=== PATIENT | female | born 1945 | race Hispanic/Latino ===

== ENCOUNTER 2021-02-06 12:58 | Day surgery (SDC) | payer OTHER ==
[2021-02-04 13:45] LABS: Absolute Lymphocytes (CBC) 2.1 K/uL (0.7-4.9); Basophils % 0.8 % (0-1.3); Hematocrit 41.9 % (36.0-45.0); Lymphocytes % 17.4 % (15.3-44.8); MPV 8.9 fL (7.6-11.3)
[2021-02-04 13:56] LABS: Potassium 4.1 mmol/L (3.5-5.1)
[2021-02-04 14:03] LABS: Protime INR 0.93
--- NOTE | 2021-02-04 14:41 | RAD REPORT ---
EXAM DESCRIPTION: RAD - Chest Pa And Lat (2 Views) - 02/04/2021 2:34 pm CLINICAL HISTORY: pre-cath procedure, pending cardiac catheterization COMPARISON: Portable May 2009 TECHNIQUE: Frontal and lateral views of the chest were obtained. FINDINGS: The lungs are fibrotic, progressive from the comparison study. No peripheral mass, consoli dation or failure finding. No hilar mass or lymphadenopathy seen. Heart size is normal and central vasculature is within normal limits. No pleural effusion or pneumothorax seen. No acute bony findin g noted. No aortic abnormality. IMPRESSION: Interstitial fibrotic pattern throughout both lung [place] showing progression from 2009. No acute cardiopulmonary finding.
--- NOTE | 2021-02-05 16:46 | EKG ---
Test Date: 2021-02-04 Test Time: 12:03:00 Greenskeeper Supervisor: KWADWO MEASUREMENT RESULTS: Intervals: Rate: 84 ID: [id number] QRSD: 82 QT: 354 QTc: 418 [place]: P: 57 ID: [id number] QRS: 40 T: 58 INTERPRETIVE STATEMENTS: Normal sinus rhythm Possible Left atrial enlargement Nonspecific T wave abnormality Abnormal ECG Compared to ECG 02/26/2016 03:34:58 Sinus arrhythmia no longer present Possible ischemia no longer present T-wave abnormality still present Electronically Signed On 02-05-21 16:43:03 CDT by Marcos Moreno
[~2021-02-06 12:58] MED LIST: HEPA 1000U/500MLS 2,000 UNIT/1,000 ML BAG IV ONE; LIDOCAINE 1% 20 ML MDV ONE
[2021-02-06] MEDS ORDERED: NA CHLORIDE 0.9% 500 ML ONE (13:48)
[2021-02-06] MEDS ORDERED: MIDAZOLAM HCL 2 MG/2 ML INJ ONE (15:17)
[2021-02-06] MEDS ORDERED: HEPARIN 5000 UNIT/ML 1 ML VIAL ONE (15:17)
[2021-02-06] MEDS ORDERED: FENTANYL CITR 100 MCG/2 ML ONE (15:17)
[2021-02-06] MEDS ORDERED: VERAPAMIL HCL 10 MG/4 ML VIAL IV ONE (15:17)
[2021-02-06] MEDS ORDERED: ATROPINE SULF 1 MG/10 ML SYR IV ONE (15:18)
[2021-02-06] MEDS ORDERED: HYDRALAZINE HCL 20 MG/ML VIAL ONE (16:03)
[2021-02-06] MEDS ORDERED: METOPROLOL TARTRATE 5 MG/5 ML INJ IV ONE ×2 (16:10→16:16)
[2021-02-06] MEDS ORDERED: FLUMAZENIL 0.1 MG/ML (5 mL VIAL) IV ONE (16:16)
[2021-02-06] MEDS ORDERED: HEPA 1000U/500MLS 1,000 UNIT/500 ML BAG IV ONE (16:23)
[2021-02-06 17:09] VITALS: TEMP 97
--- NOTE | 2021-02-06 18:07 | RAD REPORT ---
EXAM DESCRIPTION: CT - Abdomen Pelvis Wo Contrast - 02/06/2021 5:51 pm CLINICAL HISTORY: post cath abdominal pain, syncopal episode COMPARISON: Abdomen Pelvis W Contrast dated 02/25/2016 TECHNIQUE: Axial [address] imaging of the abdomen and pelvis was performed without IV contrast. No IV contrast was given because of allergy, abnormal renal function, patient refusal or physician re quest. No oral contrast administered. All CT scans are performed using dose optimization technique as appropriate and may include automated exposure control or mA/KV adjustment according to patient size. FINDINGS: No suspicious findings in the lung bases. The liver, spleen and pancreas show no suspicious findings on non-contrast imaging. Gallbladder and b iliary tree are also without suspicious finding. No hydronephrosis or suspicious renal mass. No significant adrenal finding. Isodense renal masses an d pyelonephritis cannot be excluded in the absence of IV contrast. The urinary bladder is without sig nificant finding. Contrast is present in the ureters and bladder from earlier cardiac catheterization procedure. Uterus and ovaries show no suspicious findings. No dilated bowel loops or bowel wall thickening. Appendix is normal. No retroperitoneal hematoma or o ther post cardiac catheterization complication. Trace amount of stranding near the right common femor al artery access site noted very typical and not significant. No hernia, mass or bulky lymphadenopath y. No suspicious bony findings. IMPRESSION: No retroperitoneal hematoma or other post catheterization complication. No acute or emergent finding. Full assessment is limited is the absence of IV contrast.
[2021-02-06 19:17] VITALS: BP 131/77; O2SAT 96
--- NOTE | 2021-02-06 20:41 | OP ---
Date of Procedure: 02/06/2021 Surgeon: ANITRA PALMER Procedures Performed: 1.Selective coronary angiogram. 2.Left heart catheterization. 3.Right heart catheterization. Indication: Severe aortic valve stenosis. Access: Right femoral artery 7-Omani closed with StarClose, right femoral vein 7-Omani closed with manual pressure. Anesthesia: Total sedation time was 50 minutes. Complications: None. Bleeding: Less than 50 mL. Description Of Procedure: After risks, benefits, and alternatives were explained, the patient agreed to proceed and signed informed consent. The patient was brought into the cardiac catheterization la boratory, prepped and draped in usual sterile fashion. Then, we accessed the right femoral artery us ing micropuncture kit, ultrasound guidance and fluoroscopy. I placed 7-Omani Ullin sheath and th en accessed right femoral vein using ultrasound guidance and micropuncture kit and placed a 7-Omani Ullin sheath. Then, we took a 7-Omani balloon-tipped [place] catheter through the venous, accessed into the RA, obtained waveform with pressure and then RV, obtained waveform pressure, and then PA, ob tained waveform pressure, and then thermodilution and cardiac output, and then wedge waveform pressur e obtained. Then, I removed the [place] and then took a 4-Omani JL4 catheter into the aortic root thro ugh the femoral artery access, engaged left the main, took standard views and then took a 6-Omani JR 4 catheter into the aortic root, engaged the right coronary artery, took standard views. Then, using AL1 catheter and straight Glidewire across the aortic valve with difficulty and obtained a simultane ous aortic and LV pressure, the gradient was 47 mmHg. I then did a pullback and confirmed a gradient of 40 mmHg on the pullback and then removed the catheters and the sheaths were removed. Placed Star Close for closure on the femoral artery access with good hemostasis and minimal pressure on the venou s access with good hemostasis. The patient was given 5000 of heparin throughout the procedure. Findings: 1.Left main is large and normal. 2.LAD; large, normal. 3.Left circumflex is normal, nondominant. 4.RCA; large, dominant and is normal. 5.LVEDP was 5 mmHg. 6.Right heart catheterization numbers: RA pressure was 3; RV pressure was 40/2, mean of 4; PA press ure was 34/10, mean of 21; pulmonary wedge pressure was 11 mmHg. Gradient across the aortic valve wa s 47 mmHg and aortic valve area was 0.89 sq cm. Cardiac output was 5.2 L/minute. Conclusion: 1.Severe aortic valve stenosis with a mean gradient of 47 mmHg and aortic valve area of 0.89 sq cm. 2.Normal coronary arteries. 3.Normal filling pressures. Plan And Recommendation: Proceed with transcatheter aortic valve replacement. SR/MODL Voice ID: [id number] Report ID: [id number]
== END 2021-02-06 19:37 | disposition home or self-care (01) ==
LOC: CCL 12:58
PROVIDERS: ATTEND Internal Medicine
DX: I35.2 Nonrheumatic aortic (valve) stenosis with insufficiency (principal); I10 Essential (primary) hypertension; E11.9 Type 2 diabetes mellitus without complications; E78.5 Hyperlipidemia, unspecified; Z87.891 Personal history of nicotine dependence; Z20.822 Contact with and (suspected) exposure to COVID-19
CPT/HCPCS: 93005; 85025; 80048; 36415; 85610; 82947 ×2; 85730; 74176; 71046; 93460; U0003; C1893; J0360; J1644 ×3; J2250; J3010; J7040

== ENCOUNTER 2021-06-12 13:34 | Emergency (ER) | payer OTHER ==
--- OUTSIDE RECORDS SUMMARY | 2021-06-12 13:38 | XMS REPORT | Continuity of Care Document ---
:1945 Author Organization [facility] t Address [address] [place] [address] Care Team Providers Name Role Phone Elis MIRANDA Primary Care Physician Unavailable Ajibade_O_AH Attending Clinician Unavailable Ige-Odunuga_J_AH Attending Clinician Unavailable ISAK Attending Clinician Unavailable Melba Monsivais APN Attending Clinician Ajibade_O_AH Admitting Clinician Unavailable Ige-Odunuga_J_AH Admitting Clinician Unavailable ISAK Admitting Clinician Unavailable Payers Payer Name Policy Type Policy Number Effective Date Expiration Date S ource [employer] [place] - [id number] 1030-01-01 [place] 00:00:00 (MEDICARE REPLACEMENT/ADVANT AGE - HMO) [employer] [place] [id number] 2018 PLUS CLASSIC/VALUE 00:00:00 Problems Condition Condition Condition Status Onset Resolution Last Treating Co mments Source Name Details Category Date Date Treatment Clinician Date No known No known Disease Unive rs active active ity of problems problems [facility] Allergies, Adverse Reactions, Alerts Allergy Allergy Status Severity Reaction(s) Onset Inactive Treating Comm ents Source Name Type Date Date Clinician NO KNOWN Drug Active Univers ALLERGIE Class ity of S [facility] Social History Social Habit Start Date Stop Date Quantity Comments Source Sex Assigned At Uni versity [facility] Smoking Status Start Date Stop Date Source Unknown if ever smoked Universit y [facility] Medications Ordered Filled Start Stop Current Ordering Indication Dosage Frequency Signature Comments Components Source Medication Medication Date Date Medication? Clinician (SIG) Name Name traMADol 2019- No 50mg 50 mg, Univer s (ULTRAM) 11-27 Oral, ONCE ity of tablet 50 22:30: 21:36 NOW, 1 [place] mg 00 :00 dose, [facility] 11/27/18 at Branch 1730, KANDACE pravastatin 2019- Yes 40mg Take 40 mg Univers 40 mg 7-28 by mouth ity of tablet 20:47: at [place] [address] bedtime. Medical Branch glimepiride 2019- Yes 4mg Take 4 mg U nivers 4 mg tablet 7-28 by mouth ity of 20:47: daily with [place] [address] breakfast. Medical Branch clopidogrel 2019- Yes 75mg Take 75 mg Univers 75 mg 7-28 by mouth ity of tablet 20:47: daily. [place] [address] Medical Branch losartan 2019- Yes 100mg Take 100 Univ ers 100 mg 7-28 mg by ity of tablet 20:47: mouth [place] 53 daily. Medical Branch dapaglifloz Yes Take by Un nereida in - mouth. ity of (FARXIGA) 5 20:47: [place] mg tablet 53 Medical Branch traMADol 50 Yes [id number] 50mg Take 1 Univers mg tablet 7- tablet by ity o f 00:00: mouth [place] 00 every 6 Medical (six) Branch hours as needed for Pain (scale 4-6). Vital Signs Vital Name Observation Time Observation Value Comments Source Systolic blood 2018-11-27 20:40:00 189 [facility]Hg[facility] Diastolic blood 2018-11-27 20:40:00 81 mm[Hg[facility] Heart rate 2018-11-27 20:40:00 100 /min [facility] Body temperature 2018-11-27 20:40:00 37.22 Raquel [facility] Respiratory rate 2018-11-27 20:40:00 14 /min [facility] Body height 2018-11-27 20:40:00 165.1 cm [facility] Body weight 2018-11-27 20:40:00 83.462 kg [facility] BMI 2018-11-27 20:40:00 30.62 kg/m2 [facility] Oxygen saturation in 2018-11-27 20:40:00 96 /min [facility] blood by [facility] Pulse oximetry Branch Procedures Procedure Date / Time Performed Performing Clinician Sourc e URINALYSIS 2018-11-27 20:50:00 [place], [facility] NOTICE OF PRIVACY 2018-11-27 20:18:52 Doctor Unassigned, No [facility] PRACTICES Name Medical Branch Encounters Start End Encounter Admission Attending Care Care Encounter Source Date/Time Date/Time Type Type Clinicians Facility Department ID 2019-12-28 2019-12-28 Outpatient Ajibade_O_A VFP VFP [facility]99 [facility] 03:50:00 03:50:00 H [id number] Family Practic e 2019-12-28 2019-12-28 Outpatient Ajibade_O_A VFP VFP 799 [facility] 03:50:00 03:50:00 H [id number] Family Practic e 2019-12-28 2019-12-28 Outpatient Ajibade_O_A VFP VFP 799 [facility] 03:50:00 03:50:00 H [id number] Family Practic e 2019-12-28 2019-12-28 Outpatient Ajibade_O_A VFP VFP 799 [facility] 03:50:00 03:50:00 H [id number] Family Practic e 2019-06-21 2019-06-21 Outpatient Ige-Odunuga VFP VFP 799 [facility] 07:28:00 07:28:00 _J_AH [id number] Family Practic e 2019-06-21 2019-06-21 Outpatient Ige-Odunuga VFP VFP 799 [facility] 07:28:00 07:28:00 _J_AH [id number] Family Practic e 2019-04-24 2019-04-24 Emergency Fabiola ISAK [facility] ERT [id number] Univers 10:01:05 14:25:00 HECTOR tellez [facility] 2018-11-27 2018-11-27 [facility] [id number] Univers 15:47:53 16:41:00 [id number] [id number] [address] Results Test Description Test Time Test Comments Results Result Comments Source URINALYSIS 2018-11-27 21:09:00 Test Item Value Reference Range Interpretation Comme nts APPEARANCE (test code = Clear Clear 0893954532) COLOR (test code = 7647221812) Yellow Yellow PH (test code = 4034770411) 4.8-8.0 SP GRAVITY (test code = <=1.005 1.003-1.030 5683594874) GLU U QUAL (test code = >1000 mg/dL Negative A 4173527380) BLOOD (test code = 3225476801) Negative Negative KETONES (test code = Negative Negative 2781624522) PROTEIN (test code = 2887-8) Negative Negative UROBILIN (test code = 0.2 mg/dL See_Comment [Auto mated message] The 5319934698) system which ge nerated this result transmit trisha reference range: 0-1.0 mg /dL. The reference range was not used to interpret th is result as normal/abnormal . BILIRUBIN (test code = Negative Negative 9593455407) NITRITE (test code = Negative Negative 0552835445) LEUK AD (test code = Negative Negative 5738274020) RBC/HPF (test code = See_Comment [Autom ated message] The 4940022662) system which ge nerated this result transmit trisha reference range: 0 - 3 HP F. The reference range was not used to interpret th is result as normal/abnormal . WBC/HPF (test code = See_Comment [Autom ated message] The 0280214088) system which ge nerated this result transmit trisha reference range: 0 - 5 HP F. The reference range was not used to interpret th is result as normal/abnormal . BACTERIA (test code = Negative Negative 4232627251) SQ EPITH (test code = HPF 0656914095) ANNIE EPITH (test code = HPF 5560046829) Lab Interpretation (test code = Abnormal 61395-5) [facility]
[2021-06-12 14:34] LABS: Absolute Lymphocytes (CBC) 1.7 K/uL (0.7-4.9); Hematocrit 41.5 % (36.0-45.0); Lymphocytes % 11.7 % (15.3-44.8); MPV 8.6 fL (7.6-11.3); RBC Red Blood Cell Count 4.95 M/uL (3.86-4.86)
--- NOTE | 2021-06-12 14:35 | RAD REPORT ---
EXAM DESCRIPTION: RAD - Chest Single View - 06/12/2021 2:24 pm CLINICAL HISTORY: CHEST PAIN COMPARISON: Chest Pa And Lat (2 Views) dated 02/04/2021; CHEST SINGLE VIEW dated 05/27/2009; CHEST PA AND LAT 2 VIEW dated 08/31/2000 FINDINGS: Lines: None. Lungs: No evidence of edema or pneumonia. Pleural: No significant pleural effusions or pneumothorax. Cardiac: The heart size is within normal limits. Bones: No acute fractures. Other: IMPRESSION: No acute cardiopulmonary disease.
[2021-06-12 14:46] LABS: Urine Blood Negative (Negative); Urine Glucose Negative (Negative); Urine Protein Negative (Negative); Urine Specific Gravity 1.025 (1.005-1.030); Urine pH 5.5 (5.0-7.0)
--- NOTE | 2021-06-12 15:38 | ER ---
Nurse's Notes [facility] Name: Kalie Manzo Age: 76 yrs Sex: Female : 1945 Arrival Date: 06/12/2021 Time: 13:36 Bed 5 Private MD: Mikhail Mae Diagnosis: UTI/ Urinary tract infection, site not specified Presentation: 06/12 13:47 Chief complaint: Patient states: patient states she was at the dr. office when she was ap3 told her heart rate was very elevated and she needed to be evaluated in the ER. Patient denies chest pain, and palpations. Coronavirus screen: At this time, the client does not indicate any symptoms associated with coronavirus-19. Ebola Screen: No symptoms or risks identified at this time. Initial Sepsis Screen: Does the patient meet any 2 criteria? HR > 90 bpm. Does the patient have a suspected source of infection? No. Patient's initial sepsis screen is negative. Risk Assessment: Do you want to hurt yourself or someone else? Patient reports no desire to harm self or others. Onset of symptoms was June 12, 2021. 13:47 Method Of Arrival: Wheelchair ap3 13:47 Acuity: KEVIN 3 ap3 Triage Assessment: 13:52 General: Appears in no apparent distress. comfortable, Behavior is calm, cooperative, ap3 appropriate for age. Pain: Denies pain. Neuro: Level of Consciousness is awake, alert, obeys commands, Oriented to person, place, time, situation, Appropriate for age. Cardiovascular: Denies chest pain, Patient's skin is warm and dry. Respiratory: Airway is patent Respiratory effort is even, unlabored, Respiratory pattern is regular, symmetrical. Historical: - Allergies: 13:49 No Known Allergies; ap3 - Home Meds: 13:49 carvedilol 3.125 mg oral tab 1 tab 2 times per day [Active]; glimepiride 4 mg Oral tab ap3 1 tab twice a day [Active]; olmesartan 40 mg oral tab 1 tab once daily [Active]; Basaglar KwikPen U-100 Insulin 100 unit/mL (3 mL) subcutaneous inpn [Active]; - PMHx: 13:51 CVA; NM; Hypertensive disorder; Diabetes mellitus; ap3 - Immunization history:: Client reports receiving the 2nd dose of the Covid vaccine, and booster Pneumococcal vaccine is up to date, Flu vaccine is not up to date. - Social history:: Smoking status: Patient denies any tobacco usage or history of. Screenin:53 Abuse screen: Denies threats or abuse. Nutritional screening: No deficits noted. ap3 Tuberculosis screening: No symptoms or risk factors identified. Fall Risk No fall in past 12 months (0 pts). No secondary diagnosis (0 pts). Ambulatory Aid- Crutches/Cane/Walker (15 pts). Assessment: 14:20 General: SEE TRIAGE NOTE. bp 15:31 Reassessment: No changes from previously documented assessment. Patient and/or family bp updated on plan of care and expected duration. Pain level reassessed. 16:37 Reassessment: PT D/C HOME VIA W/C, DX WITH UTI. lr4 Vital Signs: 13:47 BP 156 / 75; Pulse 108; Resp 18; Temp 97.9; Pulse Ox 98% on R/A; Weight 84.37 kg; ap3 Height 5 ft. 4 in. (162.56 cm); 13:52 BP 148 / 71; Pulse 111; Pulse Ox 96% on R/A; ap3 15:30 BP 152 / 88; Pulse 107; Resp 18; Pulse Ox 95% ; ss7 16:37 BP 138 / 76; Pulse 100; Resp 16; Pulse Ox 99% ; lr4 13:47 Body Mass Index 31.93 (84.37 kg, 162.56 cm) ap3 ED Course: 13:36 Patient arrived in ED. am2 13:37 Mikhail Mae MD is Private Physician. am2 13:49 Triage completed. ap3 13:53 Arm band placed on right wrist. ap3 13:54 Miky Mcwilliams MD is Attending Physician. sp3 14:00 Travis Rea, JOY is Primary Nurse. bp 14:20 Patient has correct armband on for positive identification. Bed in low position. Call bp light in reach. Side rails up X2. Adult w/ patient. 14:20 Inserted saline lock: 20 gauge in right forearm, using aseptic technique. Blood bp collected. 14:24 XRAY Chest (1 view) In Process Unspecified. EDMS 16:37 No provider procedures requiring assistance completed. IV discontinued, intact, lr4 bleeding controlled, No redness/swelling at site. Pressure dressing applied. Administered Medications: 15:47 Drug: NS 0.9% 1000 ml Route: IV; Rate: 1 bolus; Site: right forearm; bp 15:47 Drug: LevaQUIN (levofloxacin) 500 mg Volume: 100 ml; Route: IVPB; Infused Over: 60 bp mins; Site: right forearm; 16:16 Follow up: Response: No adverse reaction; IV Status: Completed infusion; IV Intake: ll1 100ml Intake: 16:16 IV: 100ml; Total: 100ml. ll1 Outcome: 15:37 Discharge ordered by . sp3 16:37 Discharged to home via wheelchair, with family. lr4 16:37 Condition: stable 16:37 Discharge instructions given to patient, Instructed on discharge instructions, follow up and referral plans. medication usage, Demonstrated understanding of instructions, follow-up care, medications, Prescriptions given X 1. 16:39 Patient left the ED. lr4 Signatures: Dispatcher [employer] EDMS Nakita Walker am2 Travis Rea, RN RN bp Nakita Roca RN RN ap3 Estela Greene RN RN ll1 Miky Mcwilliams MD MD sp3 Madhuri Donaldson RN RN ss7 Sandra Anton RN RN lr4
--- NOTE | 2021-06-12 15:38 | EDPHYS ---
Physician Documentation [facility] Name: Kalie Manzo Age: 76 yrs Sex: Female : 1945 Arrival Date: 06/12/2021 Time: 13:36 Bed 5 Private MD: Mikhail Mae ED Physician Miky Mcwilliams HPI: 06/12 14:06 This 76 yrs old Female presents to ER via Wheelchair with complaints of racing sp3 heart rate. 14:06 76-year-old female with a history of hypertension, diabetes, CVA, NH who presents from [facility] her [employer] office for sinus tachycardia work-up. She was initially sent there by her PCP. Patient denies any headache, neck pain, chest pain, shortness of breath, abdominal pain, nausea, vomiting, diarrhea, fever, URI symptoms, travel history, known sick contacts, syncope, near syncope, focal neuro deficits, any other symptoms on ROS at this time. Currently she feels "fine" and has no complaints. She feels that her palpitations have actually improved and she is requesting to go home.. Historical: - Allergies: 13:49 No Known Allergies; ap3 - Home Meds: 13:49 carvedilol 3.125 mg oral tab 1 tab 2 times per day [Active]; glimepiride 4 mg Oral tab ap3 1 tab twice a day [Active]; olmesartan 40 mg oral tab 1 tab once daily [Active]; Basaglar KwikPen U-100 Insulin 100 unit/mL (3 mL) subcutaneous inpn [Active]; - PMHx: 13:51 CVA; NH; Hypertensive disorder; Diabetes mellitus; ap3 - Immunization history:: Client reports receiving the 2nd dose of the Covid vaccine, and booster Pneumococcal vaccine is up to date, Flu vaccine is not up to date. - Social history:: Smoking status: Patient denies any tobacco usage or history of. ROS: 14:07 Constitutional: Negative for fever, chills, and weight loss, Eyes: Negative for injury, sp3 pain, redness, and discharge, ENT: Negative for injury, pain, and discharge, Neck: Negative for injury, pain, and swelling, Respiratory: Negative for shortness of breath, cough, wheezing, and pleuritic chest pain, Abdomen/GI: Negative for abdominal pain, nausea, vomiting, diarrhea, and constipation, Back: Negative for injury and pain, : Negative for injury, bleeding, discharge, and swelling, MS/Extremity: Negative for injury and deformity, Skin: Negative for injury, rash, and discoloration, Neuro: Negative for headache, weakness, numbness, tingling, and seizure, Psych: Negative for depression, anxiety, suicide ideation, homicidal ideation, and hallucinations, Allergy/Immunology: Negative for hives, rash, and allergies, Endocrine: Negative for neck swelling, polydipsia, polyuria, polyphagia, and marked weight changes. 14:07 All other systems are negative. Exam: 14:11 Constitutional: This is a well developed, well nourished patient who is awake, alert, sp3 and in no acute distress. Head/Face: Normocephalic, atraumatic. Eyes: Pupils equal round and reactive to light, extra-ocular motions intact. Lids and lashes normal. Conjunctiva and sclera are non-icteric and not injected. Cornea within normal limits. Periorbital areas with no swelling, redness, or edema. ENT: Nares patent. No nasal discharge, no septal abnormalities noted. External auditory canals are clear. Oropharynx with no redness, swelling, or masses, exudates, or evidence of obstruction, uvula midline. Mucous membranes moist. Neck: Trachea midline, no thyromegaly or masses palpated, and no cervical lymphadenopathy. Supple, full range of motion without nuchal rigidity, or vertebral point tenderness. No Meningismus. Chest/axilla: Normal chest wall appearance and motion. Nontender with no deformity. No lesions are appreciated. Respiratory: Lungs have equal breath sounds bilaterally, clear to auscultation and percussion. No rales, rhonchi or wheezes noted. No increased work of breathing, no retractions or nasal flaring. Abdomen/GI: Soft, non-tender, with normal bowel sounds. No distension or tympany. No guarding or rebound. No evidence of tenderness throughout. Back: No spinal tenderness. No costovertebral tenderness. Full range of motion. Skin: Warm, dry with normal turgor. Normal color with no rashes, no lesions, and no evidence of cellulitis. MS/ Extremity: Pulses equal, no cyanosis. Neurovascular intact. Full, normal range of motion. Neuro: Awake and alert, GCS 15, oriented to person, place, time, and situation. Cranial nerves II-XII grossly intact. Motor strength 5/5 in all extremities. Sensory grossly intact. Cerebellar exam normal. Normal gait. Psych: Awake, alert, with orientation to person, place and time. Behavior, mood, and affect are within normal limits. 14:11 Cardiovascular: Tachycardia in the 100-110 range. Otherwise normal cardiac exam.. 14:56 ECG was reviewed by the Attending Physician. She demonstrates sinus tachycardia at 115 sp3 bpm with normal intervals, normal QRS, normal axis, normal ST/T-segment without evidence of ischemia. Vital Signs: 13:47 BP 156 / 75; Pulse 108; Resp 18; Temp 97.9; Pulse Ox 98% on R/A; Weight 84.37 kg; ap3 Height 5 ft. 4 in. (162.56 cm); 13:52 BP 148 / 71; Pulse 111; Pulse Ox 96% on R/A; ap3 15:30 BP 152 / 88; Pulse 107; Resp 18; Pulse Ox 95% ; ss7 16:37 BP 138 / 76; Pulse 100; Resp 16; Pulse Ox 99% ; lr4 13:47 Body Mass Index 31.93 (84.37 kg, 162.56 cm) ap3 MDM: 13:55 Patient medically screened. sp3 14:12 Data reviewed: vital signs, nurses notes. ED course: 76-year-old female with sinus sp3 tachycardia of unknown etiology. Patient was sent here by cardiology. Will obtain full cardiac work-up, troponin, electrolytes, EKG, chest x-ray. Cardiology was worried about potential sepsis or other infectious etiology and does not think that it is a primary cardiac issue. Patient currently is improving and has no symptoms. If work-up is negative will discharge patient home for continued monitoring by PCP. I am not highly suspicious for infection or sepsis at this time.. 15:36 ED course: Patient has a positive urine dipstick and a 14,000 white count with mild sp3 left shift. COVID-19 test is negative and x-ray is clear. We will place patient on Levaquin with an IV dose in the ER with 500 mg in the fluid bolus, and discharged home on p.o. Levaquin. Patient is okay with the plan will follow up with her PCP.. 06/12 13:55 Order name: Basic Metabolic Panel sp3 06/12 13:55 Order name: CBC with Diff; Complete Time: 15:33 sp3 06/12 13:55 Order name: LFT's sp3 06/12 13:55 Order name: Magnesium sp3 06/12 13:55 Order name: NT PRO-BNP sp3 06/12 13:55 Order name: PT-INR; Complete Time: 15:33 sp3 06/12 13:55 Order name: Troponin HS sp3 06/12 13:55 Order name: XRAY Chest (1 view); Complete Time: 15:33 sp3 06/12 13:55 Order name: EKG; Complete Time: 13:56 sp3 06/12 13:55 Order name: Cardiac monitoring; Complete Time: 14:07 sp3 06/12 14:14 Order name: COVID-19 SARS RT PCR (Document "Date of Onset" if Symptomatic); Complete ss Time: 15:33 06/12 14:46 Order name: Urine Dipstick-Ancillary; Complete Time: 15:33 EDMS 06/12 13:55 Order name: EKG - Nurse/Tech; Complete Time: 15:30 sp3 06/12 13:55 Order name: IV Saline Lock; Complete Time: 14:20 sp3 06/12 13:55 Order name: Labs collected and sent; Complete Time: 14:20 sp3 06/12 13:55 Order name: O2 Per Protocol; Complete Time: 14:07 sp3 06/12 13:55 Order name: O2 Sat Monitoring; Complete Time: 14:07 sp3 06/12 13:55 Order name: Urine Dipstick-Ancillary (obtain specimen); Complete Time: 15:30 sp3 Administered Medications: 15:47 Drug: NS 0.9% 1000 ml Route: IV; Rate: 1 bolus; Site: right forearm; bp 15:47 Drug: LevaQUIN (levofloxacin) 500 mg Volume: 100 ml; Route: IVPB; Infused Over: 60 bp mins; Site: right forearm; 16:16 Follow up: Response: No adverse reaction; IV Status: Completed infusion; IV Intake: ll1 100ml Disposition Summary: 06/12/21 15:37 Discharge Ordered Location: Home sp3 Condition: Stable sp3 Diagnosis - UTI/ Urinary tract infection, site not specified sp3 Followup: sp3 - With: Private Physician - When: Upon discharge from the Emergency Department - Reason: Re-evaluation by your physician Discharge Instructions: - Discharge Summary Sheet sp3 - Urinary Tract Infection, Adult sp3 Forms: - Medication Reconciliation Form sp3 - Thank You Letter sp3 - Antibiotic Education sp3 - Prescription Opioid Use sp3 Prescriptions: - levofloxacin 500 mg Oral Tablet - take 1 tablet by ORAL route once daily for 7 days; 7 tablet; Refills: 0, sp3 Product Selection Permitted Signatures: Dispatcher [employer] Travis Salas, RN RN bp Nakita Roca RN RN ap3 Miky Mcwilliams MD MD sp3 Estela Greene RN ll1
[2021-06-12] MEDS ORDERED: NA CHLORIDE 0.9% 1,000 ML ONE (15:44)
[2021-06-12] MEDS ORDERED: Levofloxacin500mg IV 500 MG/100 ML BAG IV ONE (15:44)
[2021-06-12 16:14] LABS: ALT/SGPT 24 U/L (12-78); AST/SGOT 17 U/L (15-37); Albumin 3.6 g/dL (3.4-5.0); Alkaline Phosphatase 79 U/L (45-117); BUN Blood Urea Nitrogen 19 mg/dL (7-18); Bicarbonate 25 mmol/L (21-32); Bilirubin Direct < 0.1 mg/dL (0-0.2); Bilirubin Total 0.2 mg/dL (0.2-1.0); Glucose Level 235 mg/dL (74-106); NT PRO-BNP 89 pg/mL (<450); Potassium 4.1 mmol/L (3.5-5.1); Protein, Total 8.1 g/dL (6.4-8.2); Sodium Level 139 mmol/L (136-145)
[2021-06-12 16:45] VITALS: TEMP 97.9
[2021-06-12 16:48] VITALS: BP 138/76; O2SAT 99
[2021-06-12 18:27] LABS: Magnesium 1.5
== END 2021-06-12 16:39 | disposition home or self-care (01) ==
LOC: ER 13:34
DX: R00.2 Palpitations (principal); N39.0 Urinary tract infection, site not specified; I10 Essential (primary) hypertension; E11.9 Type 2 diabetes mellitus without complications; Z79.4 Long term (current) use of insulin; Z86.73 Personal history of transient ischemic attack (TIA), and cerebral infarction without residual deficits; Z20.822 Contact with and (suspected) exposure to COVID-19
CPT/HCPCS: 96365; 93005; 85025; 80048; 36415; 83735; 85610; 80076; 81003; 84484; 83880; 71045; 99284; U0003; J7030